=== PATIENT | female | born 1995 | race Caucasian/White ===

== ENCOUNTER 2022-03-13 14:41 | Emergency (ER) | payer OTHER ==
[2022-03-14] MEDS ORDERED: PREN1COM12 MT (13:43)
== END 2022-03-13 15:30 | disposition left against medical advice (07) ==
LOC: ER 14:41
DX: Z53.21 Procedure and treatment not carried out due to patient leaving prior to being seen by health care provider (principal)

== ENCOUNTER 2022-03-14 09:01 | Emergency (ER) | payer OTHER ==
[~2022-03-14] VITALS: Ht 165.1 cm; Wt 75.0 kg
[2022-03-14] MEDS ORDERED: PREN1COM12 MT (13:43)
[2022-03-14 14:01] VITALS: BP 126/75
== END 2022-03-14 14:09 | disposition home or self-care (01) ==
LOC: ER 09:01
DX: Z32.01 Encounter for pregnancy test, result positive (principal)
CPT/HCPCS: 36415; 81025; 84702; 99283

== ENCOUNTER 2022-03-18 07:01 | Emergency (ER) | payer OTHER ==
[~2022-03-18] VITALS: Ht 157.5 cm; Wt 55.9 kg
[~2022-03-18 07:01] MED LIST: PREN1COM12 MT
[2022-03-18 07:06] VITALS: BP 101/66
[2022-03-18 07:53] LABS: BASOPHILS % 0.4 % (0.0-2.0); EOSINOPHILS % 1.7 % (0.0-5.0); HEMATOCRIT. 38.8 % (36.0-48.0); HEMOGLOBIN. 13.2 g/dL (12.0-16.0); LYMPHOCYTES % 15.9 % (20.0-50.0); MEAN CORPUSCULAR HEMOGLOBIN 29.6 pg (28.0-32.0); MEAN CORPUSCULAR VOLUME 86.9 fL (81.0-99.0); MEAN PLATELET VOLUME 8.6 fl (7.4-10.4); MONOCYTES % 6.2 % (2.0-8.0); NEUTROPHILS % 75.8 % (40.0-76.0); PLATELET 258 x1000/uL (130-400); RED BLOOD CELL COUNT 4.47 mill/uL (4.2-5.4)
[2022-03-18 08:14] LABS: CHLORIDE 104 mEq/L (98-107)
[2022-03-18 08:37] LABS: B-HCG QUANTITATIVE 28863 mIU/mL (<3)
[2022-03-18 08:54] LABS: CLARITY URINE CLOUDY (CLEAR); COLOR URINE YELLOW (YELLOW); KETONES URINE 2+ (NEGATIVE); LEUKOCYTE ESTERASE URINE TRACE (NEGATIVE); NITRITE URINE NEGATIVE (NEGATIVE); OCCULT BLOOD URINE NEGATIVE (NEGATIVE); PH URINE 6.5 (4.5-8.0); PROTEIN URINE TRACE (NEGATIVE); SPECIFIC GRAVITY URINE 1.024 (1.005-1.030)
[2022-03-18] MEDS ORDERED: NITR100C PO (09:29)
[2022-03-18] MEDS ORDERED: TOPUD PO (09:29)
== END 2022-03-18 09:46 | disposition home or self-care (01) ==
LOC: ER 07:48
DX: O26.891 Other specified pregnancy related conditions, first trimester (principal); O20.0 Threatened abortion; O23.41 Unspecified infection of urinary tract in pregnancy, first trimester; N39.0 Urinary tract infection, site not specified; Z3A.01 Less than 8 weeks gestation of pregnancy
CPT/HCPCS: 36415; 76801; 80053; 81003; 81025; 84702; 85025; 86850; 86900; 99284

== ENCOUNTER 2022-03-24 09:26 | Emergency (ER) | payer OTHER ==
[~2022-03-24] VITALS: Ht 160 cm; Wt 60.0 kg
[~2022-03-24 09:26] MED LIST changes: +NITR100C PO; +TOPUD PO
[2022-03-24 09:32] VITALS: BP 123/66
== END 2022-03-24 11:01 | disposition home or self-care (01) ==
LOC: ER 10:17
DX: O26.891 Other specified pregnancy related conditions, first trimester (principal); R11.2 Nausea with vomiting, unspecified; Z3A.01 Less than 8 weeks gestation of pregnancy
CPT/HCPCS: 99281